=== PATIENT | male | born 1940 | race Caucasian/White ===

== ENCOUNTER 2017-02-04 12:16 | Inpatient (IN) | payer BC ==
[~2017-02-04] VITALS: Ht 175.3 cm; Wt 146.1 kg
[~2017-02-04 12:16] MED LIST: AMIO200T2 PO; ASPI-482 PO; BETA1TAB13 PO; CHOL500045 PO; CHOL500050 PO; DIAZ5TAB PO; DILT120C11 PO; DULA0.75 SQ; FLUT9.9S NS; FURO40TA4 PO; LORA10TA68 PO; LOSA50TA6 PO; LUTE20CA4 PO; METF500T4 PO; METO100T11 PO; OMEG1CAP38 PO; POTASSIUM CHLO10 MEQ PO; SILV20CR14 TP; TRAM50TA PO; VENTOLIN HFA18 GM INH; WARF5TAB7 PO
[2017-02-04] MEDS ORDERED: PNEUMOCOCCAL VAX SCREEN BY RX. MC ONE (13:45)
[2017-02-04 15:00] VITALS: BP 113/61
[2017-02-04] MEDS ORDERED: traMADol 50 MG TABLET PO PRN (15:15)
[2017-02-04] MEDS ORDERED: diazePAM 5 MG TABLET PO PRN ×2 (15:15→15:30)
[2017-02-04] MEDS ORDERED: DEXTROSE 50% 25 GM / 50ML DISP.SYRIN. IV PRN (15:30)
[2017-02-04] MEDS: METOPROLOL SUCC 24HR ER 100 MG TAB.ER.24H. PO SCH (16:00)
[2017-02-04] MEDS ORDERED: metFORMIN 500 MG TABLET PO SCH (16:00)
[2017-02-04] MEDS: LOSARTAN POTASSIUM 50 MG TABLET. PO SCH ×2 (16:00→17:27)
[2017-02-04] MEDS: FUROSEMIDE 40 MG TABLET. PO SCH (16:00)
[2017-02-04] MEDS: POTASSIUM CHLORIDE 10 MEQ TABLET.ER. PO SCH (16:00)
[2017-02-04] MEDS: INSULIN ASPART 300 UNITS/3 ML INSULN.PEN SQ SCH (17:00)
[2017-02-04 19:00] VITALS: BP 106/66
--- NOTE | 2017-02-04 21:22 | RAD ---
EXAM: Bilateral lower extremity venous Doppler. HISTORY: Right calf pain and swelling and bruising. COMPARISON: None. FINDINGS: Grayscale and Doppler analysis of the both lower extremity deep venous systems was performed with graded compression and augmentation. The common femoral, greater saphenous, superficial femoral, popliteal and calf veins were assessed. There is no evidence of deep venous thrombosis. Hypoechoic collection in the right popliteal fossa measures 11.5 x 4.8 x 4.1 cm and extends into the upper calf. Additional fluid is seen along the deep fascia of the catheter more distally. IMPRESSION: 1. No evidence of deep venous thrombosis. 2. Moderate to large right popliteal cyst, with evidence of rupture and extension into the calf. It contains heterogeneous material indicating debris or possibly hemorrhage. Electronically signed by: Leyla Fitzpatrick MD (02/04/2017 9:18 PM) [facility]
[2017-02-04 22:21] LABS: BILIRUBIN,URINE NEGATIVE (NEG); GLUCOSE,URINE NEGATIVE (NEG); NITRITE,URINE NEGATIVE (NEG); PH,URINE 5.5; PROTEIN,URINE NEGATIVE (NEG-TRACE); UROBILINOGEN,URINE 0.2 mg/dL (0.2 mg/dL)
[2017-02-04 22:31] LABS: BACTERIA,URINE 0 /HPF (0-FEW); SQUAMOUS EPITHELIAL CELL,UR OCC /LPF
[2017-02-04 22:48] LABS: PROTHROMBIN TIME PATIENT 53.9 SEC (11.7-14.0)
[2017-02-04 23:00] VITALS: BP 123/64
[2017-02-04 23:11] LABS: INR 6.6 (0.8-1.1)
[2017-02-04 23:40] VITALS: BP 122/64
[2017-02-04 23:54] VITALS: BP 122/63
[2017-02-05 00:55] VITALS: BP 139/67
[2017-02-05 01:07] VITALS: BP 139/67
[2017-02-05 01:24] VITALS: BP 131/59
[2017-02-05 05:16] LABS: BASO # 0.1 x10^3/uL (0.0-0.2); BASO % 1 % (0-3); EOS % 2 % (0-3); HEMATOCRIT 33.9 % (39.0-53.0); HEMOGLOBIN 11.5 g/dL (13.0-17.5); LYMPH # 1.8 x10^3/uL (1.0-4.8); LYMPH % 17 % (24-48); MEAN CORPUSCULAR HEMOGLOBIN 28 pg (25-35); MEAN CORPUSCULAR HGB CONC 34 g/dL (31-37); MEAN CORPUSCULAR VOLUME 84 fL (79-100); MONO % 7 % (0-9); NEUT % 74 % (31-73); PLATELET COUNT 266 x10^3/uL (140-400); RED BLOOD COUNT 4.06 x10^6/uL (4.30-5.70); RED CELL DISTRIBUTION WIDTH 16.1 % (11.5-14.5); WHITE BLOOD COUNT 11.1 x10^3/uL (4.0-11.0)
[2017-02-05 05:32] LABS: INR 3.3 (0.8-1.1); PROTHROMBIN TIME PATIENT 31.3 SEC (11.7-14.0)
[2017-02-05 06:06] LABS: ALBUMIN 2.6 g/dL (3.4-5.0); ALBUMIN/GLOBULIN RATIO 0.7 (1.0-1.7); CALCIUM 8.4 mg/dL (8.5-10.1); CREATININE 1.3 mg/dL (0.7-1.3); POTASSIUM 4.2 mmol/L (3.5-5.1); TOTAL BILIRUBIN 0.6 mg/dL (0.2-1.0); TOTAL PROTEIN 6.6 g/dL (6.4-8.2)
[2017-02-05 07:10] VITALS: BP 122/77
[2017-02-05] MEDS ORDERED: metFORMIN 500 MG TABLET PO SCH (07:30)
[2017-02-05 07:43] LABS: BILIRUBIN,URINE NEGATIVE (NEG); GLUCOSE,URINE NEGATIVE (NEG); NITRITE,URINE NEGATIVE (NEG); PH,URINE 7.5; PROTEIN,URINE NEGATIVE (NEG-TRACE); UROBILINOGEN,URINE 0.2 mg/dL (0.2 mg/dL)
[2017-02-05] MEDS: INSULIN ASPART 300 UNITS/3 ML INSULN.PEN SQ SCH ×2 (07:51→12:00)
[2017-02-05 07:54] LABS: SQUAMOUS EPITHELIAL CELL,UR FEW /LPF
[2017-02-05 07:55] LABS: BACTERIA,URINE FEW /HPF (0-FEW)
[2017-02-05] MEDS: METOPROLOL SUCC 24HR ER 100 MG TAB.ER.24H. PO SCH (08:36)
[2017-02-05] MEDS: LOSARTAN POTASSIUM 50 MG TABLET. PO SCH (08:36)
[2017-02-05] MEDS: FUROSEMIDE 40 MG TABLET. PO SCH (08:37)
[2017-02-05] MEDS: POTASSIUM CHLORIDE 10 MEQ TABLET.ER. PO SCH (08:38)
[2017-02-05] MEDS ORDERED: PNEUMOC CONJ VACC 23-VALENT 0.5 ML VIAL. VAX IM ONE (09:00)
[2017-02-05] MEDS ORDERED: FLUTICASONE 50MCG/NASAL SPRAY 16GM BOTTLE. NS PRN (09:00)
--- NOTE | 2017-02-05 09:21 | PDOC ---
SUBJECTIVE Subjective His hematuria stopped, and his INR is down to 3.3 after fresh frozen plasma transfusion, he is anxious to go home OBJECTIVE Vital Signs Vital Signs Date Time Temp Pulse Resp B/P (MAP) Pulse Ox O2 Delivery O2 Flow Rate FiO2 02/05/17 08:37 92 122/77 02/05/17 08:36 92 122/77 02/05/17 08:36 92 122/77 02/05/17 07:10 97.5 92 20 122/77 (92) 95 Room Air 97.5 02/05/17 01:24 97.7 76 18 131/59 97.7 02/05/17 01:07 97.9 75 18 139/67 97.9 02/05/17 00:55 97.9 75 18 139/67 97.9 02/04/17 23:54 97.7 70 18 122/63 97.7 02/04/17 23:40 97.9 76 18 122/64 97.9 02/04/17 23:00 98.3 80 20 123/64 (83) 92 Room Air 98.3 02/04/17 20:00 Room Air 02/04/17 19:26 Room Air 02/04/17 19:00 97.5 68 20 106/66 (79) 94 Room Air 97.5 02/04/17 18:13 18 94 Room Air 02/04/17 17:27 60 113/61 02/04/17 17:13 20 95 Room Air 02/04/17 15:00 98.1 58 19 113/61 (78) 95 Room Air 98.1 I & O Intake and Output 02/05/17 07:00 Intake Total 1070 ml Balance 1070 ml Intake Oral 1050 ml Blood Product IV Normal Saline Flush 20 ml PHYSICAL EXAM Physical Exam His right lower extremity still swelling and erythema due to ruptured Munson cyst , otherwise exam without change ASSESSMENT/PLAN Assessment/Plan Plan to discharge home and follow-up as outpatient to need INR on then resume anticoagulation Problems: COMMENT Lab Laboratory Tests Test 02/04/17 16:15 02/04/17 17:40 02/04/17 21:01 02/04/17 22:03 Prothrombin Time 53.9 SEC (11.7-14.0) Prothromb Time International Ratio 6.6 (0.8-1.1) Glucose (Fingerstick) 151 mg/dL (70-99) 109 mg/dL (70-99) Urine Collection Type Unknown Urine Color Yellow Urine Clarity Clear Urine pH 5.5 Urine Specific [place] 1.020 Urine Protein Negative mg/dL (NEG-TRACE) Urine Glucose (UA) Negative mg/dL (NEG) Urine Ketones (Stick) Negative mg/dL (NEG) Urine Blood Moderate (NEG) Urine Nitrite Negative (NEG) Urine Bilirubin Negative (NEG) Urine Urobilinogen Dipstick 0.2 mg/dL (0.2 mg/dL) Urine Leukocyte Esterase Small (NEG) Urine RBC 6-10 /HPF (0-2) Urine WBC 1-4 /HPF (0-4) Urine Squamous Epithelial Cells Occ /LPF Urine Bacteria 0 /HPF (0-FEW) Urine Mucus Mod /LPF Test 02/05/17 05:00 02/05/17 07:10 02/05/17 07:20 White Blood Count 11.1 x10^3/uL (4.0-11.0) Red Blood Count 4.06 x10^6/uL (4.30-5.70) Hemoglobin 11.5 g/dL (13.0-17.5) Hematocrit 33.9 % (39.0-53.0) Mean Corpuscular Volume 84 fL (79-100) Mean Corpuscular Hemoglobin 28 pg (25-35) Mean Corpuscular Hemoglobin Concent 34 g/dL (31-37) Red Cell Distribution Width 16.1 % (11.5-14.5) Platelet Count 266 x10^3/uL (140-400) Neutrophils (%) (Auto) 74 % (31-73) Lymphocytes (%) (Auto) 17 % (24-48) Monocytes (%) (Auto) 7 % (0-9) Eosinophils (%) (Auto) 2 % (0-3) Basophils (%) (Auto) 1 % (0-3) Neutrophils # (Auto) 8.2 x10^3uL (1.8-7.7) Lymphocytes # (Auto) 1.8 x10^3/uL (1.0-4.8) Monocytes # (Auto) 0.8 x10^3/uL (0.0-1.1) Eosinophils # (Auto) 0.2 x10^3/uL (0.0-0.7) Basophils # (Auto) 0.1 x10^3/uL (0.0-0.2) Prothrombin Time 31.3 SEC (11.7-14.0) Prothromb Time International Ratio 3.3 (0.8-1.1) Sodium Level 140 mmol/L (136-145) Potassium Level 4.2 mmol/L (3.5-5.1) Chloride Level 103 mmol/L (98-107) Carbon Dioxide Level 29 mmol/L (21-32) Anion Gap 8 (6-14) Blood Urea Nitrogen 20 mg/dL (8-26) Creatinine 1.3 mg/dL (0.7-1.3) Estimated GFR (Cockcroft-Gault) 54.0 BUN/Creatinine Ratio 15 (6-20) Glucose Level 100 mg/dL (70-99) Calcium Level 8.4 mg/dL (8.5-10.1) Total Bilirubin 0.6 mg/dL (0.2-1.0) Aspartate Amino Transf (AST/SGOT) 29 U/L (15-37) Alanine Aminotransferase (ALT/SGPT) 27 U/L (16-63) Alkaline Phosphatase 29 U/L (46-116) Total Protein 6.6 g/dL (6.4-8.2) Albumin 2.6 g/dL (3.4-5.0) Albumin/Globulin Ratio 0.7 (1.0-1.7) Glucose (Fingerstick) 110 mg/dL (70-99) Urine Collection Type Unknown Urine Color Yellow Urine Clarity Clear Urine pH 7.5 Urine Specific [place] 1.010 Urine Protein Negative mg/dL (NEG-TRACE) Urine Glucose (UA) Negative mg/dL (NEG) Urine Ketones (Stick) Negative mg/dL (NEG) Urine Blood Negative (NEG) Urine Nitrite Negative (NEG) Urine Bilirubin Negative (NEG) Urine Urobilinogen Dipstick 0.2 mg/dL (0.2 mg/dL) Urine Leukocyte Esterase Negative (NEG) Urine RBC 1-2 /HPF (0-2) Urine WBC 1-4 /HPF (0-4) Urine Squamous Epithelial Cells Few /LPF Urine Bacteria Few /HPF (0-FEW) Urine Mucus Slight /LPF NATALI DEVINE MD Feb 05, 2017 09:21
--- NOTE | 2017-02-05 09:55 | PDOC3 ---
Discharge Summary* Date of Admission: Feb 04, 2017 Date of Discharge: Feb 05, 2017 Admitting Diagnosis 1-coagulopathy with INR of over 8 2-hematuria due to coagulopathy 3-ruptured Munson's cyst in the right lower extremity 4-atrial fibrillation and chronic anticoagulation 5-hypertension Problems: Final Diagnosis 1-coagulopathy with INR of over 8 2-hematuria due to coagulopathy 3-ruptured Munson's cyst in the right lower extremity 4-atrial fibrillation and chronic anticoagulation 5-hypertension Procedures Venous Doppler ultrasound bilateral lower extremity, fresh frozen plasma transfusion 2 units Brief Hospital Course Mr. Palomino is a 76 old M who presented with active hematuria due to coagulopathy and INR of 8 he is on Coumadin treatment he was admitted and fresh frozen plasma was transfused his INR the next day was down to 3.3 he was feeling much better and his hematuria stopped he had swelling and pain in the right lower extremity and a venous Doppler ultrasound was done and showed ruptured Munson cyst with hemorrhage probably due to his coagulopathy he was assured and he will continue to hold his anticoagulation and see us in the office on another INR will be checked and will decide to resume anticoagulation then probably was Coumadin or Xarelto Disposition/Orders: D/C to Home CONDITION AT DISCHARGE: Improved, Stable Diet: Cardiac, Consistent Carbohydrate Scheduled Albuterol Sulfate (Ventolin Hfa Inhaler), 2 PUFF INH QID, (Reported) Beta-Carotene(A) W-C & E/Min (Opti-Vitamins Tablet), 2 EACH PO DAILY, (Reported) Cholecalciferol (Vitamin D3) (Vitamin D), 5,000 UNIT PO DAILY, (Reported) Diltiazem Hcl (Diltiazem Er), 120 MG PO DAILY, (Reported) Dulaglutide (Trulicity), 0.75 MG SQ QSU, (Reported) Furosemide (Furosemide), 1 TAB PO DAILY, (Reported) Loratadine (Claritin), 1 TAB PO DAILY, (Reported) Losartan Potassium (Losartan Potassium), 50 MG PO DAILY, (Reported) Lutein (Lutein), 20 MG PO DAILY, (Reported) Metformin Hcl (Metformin Hcl), 500 MG PO BIDAC, (Reported) Metoprolol Succinate (Metoprolol Succinate ( Xl )), 100 MG PO DAILY, (Reported) [place]-3 Fatty Acids/Fish Oil ([place] 3 Fish Oil Softgel), 2 EACH PO DAILY, ( Reported) Potassium Chloride (Potassium Chloride), 10 MEQ PO DAILY, (Reported) Silver Sulfadiazine (Silvadene), 1 SOFIA TP BID, (Reported) Scheduled PRN Diazepam (Valium), 1-2 TAB PO PRN TID PRN for ANXIETY / AGITATION, (Reported) Fluticasone Propionate (Flonase Allergy Relief), 2 SPRAYS NS PRN BID PRN for CONGESTION, (Reported) Tramadol Hcl (Tramadol Hcl), 1 TAB PO TID PRN for PAIN, (Reported) Discontinued Medications Aspirin (Aspir 81), 1 TAB PO DAILY, (Reported) Warfarin Sodium (Warfarin Sodium), 1 TAB PO DAILY, (Reported) FOLLOW UP APPOINTMENT: in the office Time Spent Total time spent with patient [] minutes for coordination of care, counseling, and education. NATALI DEVINE MD Feb 05, 2017 09:55
[2017-02-05 10:30] VITALS: BP 120/67
--- NOTE | 2017-02-05 18:29 | PDOC1 ---
History and Physical Date of Admission Date of Admission 02/04/17 Identification/Chief Complaint Chief Complaint Pain right lower extremity and swelling, hematuria Problems: Source Source: Patient History of Present Illness History of Present Illness Patient presented to the office complaining of right lower extremity pain and swelling and erythema he is on Coumadin his INR was over therapeutic over 8 and the when he went to the bathroom he had lev hematuria he was admitted for transfusion of fresh frozen frozen plasma and further evaluation of his right lower extremity Past Medical History Cardiovascular: AFIB, CHF, HTN, Other Renal/: Chronic renal insuff Endocrine: Diabetes Past Surgical History Past Surgical History: Pacemaker, Cholecystectomy Family History Family History: Diabetes, Hypertension Social History Smoke: No ALCOHOL: rare Drugs: None Current Medications Current Medications Current Medications Medications (Trade) Dose Ordered Sig/Sagar Start Time Stop Time Status Last Admin Dose Admin Dextrose (Dextrose 50%-Water Syringe) 12.5 gm PRN Q15MIN PRN 02/04/17 15:30 02/05/17 12:11 DC Diazepam (Valium) 10 mg PRN TID PRN 02/04/17 15:30 02/05/17 12:11 DC Diltiazem HCl (Cardizem 24hr Cd) 120 mg DAILY 02/04/17 16:00 02/05/17 12:11 DC 02/05/17 08:37 120 MG Fluticasone Propionate (Flonase) 1 spray PRN BID PRN 02/05/17 09:00 02/05/17 12:11 DC Furosemide (Lasix) 40 mg DAILY 02/04/17 16:00 02/05/17 12:11 DC 02/05/17 08:37 40 MG Insulin Aspart (NovoLOG) 0-5 UNITS TIDWMEALS 02/04/17 17:00 02/05/17 12:11 DC Losartan Potassium (Cozaar) 50 mg DAILY 02/04/17 16:00 02/05/17 12:11 DC 02/05/17 08:36 50 MG Metformin HCl (Glucophage) 500 mg BIDAC 02/05/17 07:30 02/05/17 12:11 DC 02/05/17 08:38 500 MG Metoprolol Succinate (Toprol Xl) 100 mg DAILY 02/04/17 16:00 02/05/17 12:11 DC 02/05/17 08:36 100 MG Non-Formulary Medication 0.75 mg QSU 02/10/17 16:00 02/10/17 16:00 DC Pneumococcal Polyvalent Vaccine (Do NOT chart on this placeholder) 1 each 1X ONCE 02/04/17 13:45 02/04/17 13:46 UNV Pneumococcal Polyvalent Vaccine (Pneumovax 23) 0.5 ml ONCE ONCE 02/05/17 09:00 02/05/17 09:01 DC 02/05/17 08:51 0.5 ML Potassium Chloride (Klor-Con) 10 meq [id number] 02/04/17 16:00 02/05/17 12:11 DC 02/05/17 08:38 10 MEQ Tramadol HCl (Ultram) 50 mg PRN TID PRN 02/04/17 15:15 02/05/17 12:11 DC 02/04/17 17:13 50 MG Allergies Allergies Allergies Coded Allergies Type Severity Reaction Last Updated Verified No Known Drug Allergies 06/26/13 No ROS Review of System CONSTITUTIONAL: No fever or chills EYES: No recent changes SKIN: No rash or itching CARDIOVASCULAR: No chest pain, syncope, palpitations, edema and erythema in the right lower extremity RESPIRATORY: No SOB or cough GASTROINTESTINAL: No nausea, vomiting or abdominal pain NEUROLOGICAL: No headaches or weakness ENDOCRINE: No cold or heat intolerance GENITOURINARY: Hematuria was blood in the urine no pain MUSCULOSKELETAL: No back pain or joint pain LYMPHATICS: No enlarged lymph nodes PSYCHIATRIC: No anxiety or depression Physical Exam Physical Exam GEN.: No apparent distress. Alert and oriented. HEENT: Head is normocephalic, atraumatic NECK: Supple. LUNGS: Clear to auscultation. HEART: RRR, S1, S2 present. ABDOMEN: Soft, nontender. Positive bowel sounds. EXTREMITIES: Without any cyanosis. He does have a swelling in the right lower extremity with erythema and warm to touch pain behind the knee NEUROLOGIC: Normal speech, normal tone PSYCHIATRIC: Normal affect, normal mood. Vitals Vitals Vital Signs Date Time Temp Pulse Resp B/P (MAP) Pulse Ox O2 Delivery O2 Flow Rate FiO2 02/05/17 10:30 96.1 71 20 120/67 (84) 93 Room Air 96.1 Labs Labs Laboratory Tests Test 02/04/17 16:15 02/04/17 17:40 02/04/17 21:01 02/04/17 22:03 Prothrombin Time 53.9 SEC (11.7-14.0) Prothromb Time International Ratio 6.6 (0.8-1.1) Glucose (Fingerstick) 151 mg/dL (70-99) 109 mg/dL (70-99) Urine Collection Type Unknown Urine Color Yellow Urine Clarity Clear Urine pH 5.5 Urine Specific [place] 1.020 Urine Protein Negative mg/dL (NEG-TRACE) Urine Glucose (UA) Negative mg/dL (NEG) Urine Ketones (Stick) Negative mg/dL (NEG) Urine Blood Moderate (NEG) Urine Nitrite Negative (NEG) Urine Bilirubin Negative (NEG) Urine Urobilinogen Dipstick 0.2 mg/dL (0.2 mg/dL) Urine Leukocyte Esterase Small (NEG) Urine RBC 6-10 /HPF (0-2) Urine WBC 1-4 /HPF (0-4) Urine Squamous Epithelial Cells Occ /LPF Urine Bacteria 0 /HPF (0-FEW) Urine Mucus Mod /LPF Test 02/05/17 05:00 02/05/17 07:10 02/05/17 07:20 02/05/17 11:20 White Blood Count 11.1 x10^3/uL (4.0-11.0) Red Blood Count 4.06 x10^6/uL (4.30-5.70) Hemoglobin 11.5 g/dL (13.0-17.5) Hematocrit 33.9 % (39.0-53.0) Mean Corpuscular Volume 84 fL (79-100) Mean Corpuscular Hemoglobin 28 pg (25-35) Mean Corpuscular Hemoglobin Concent 34 g/dL (31-37) Red Cell Distribution Width 16.1 % (11.5-14.5) Platelet Count 266 x10^3/uL (140-400) Neutrophils (%) (Auto) 74 % (31-73) Lymphocytes (%) (Auto) 17 % (24-48) Monocytes (%) (Auto) 7 % (0-9) Eosinophils (%) (Auto) 2 % (0-3) Basophils (%) (Auto) 1 % (0-3) Neutrophils # (Auto) 8.2 x10^3uL (1.8-7.7) Lymphocytes # (Auto) 1.8 x10^3/uL (1.0-4.8) Monocytes # (Auto) 0.8 x10^3/uL (0.0-1.1) Eosinophils # (Auto) 0.2 x10^3/uL (0.0-0.7) Basophils # (Auto) 0.1 x10^3/uL (0.0-0.2) Prothrombin Time 31.3 SEC (11.7-14.0) Prothromb Time International Ratio 3.3 (0.8-1.1) Sodium Level 140 mmol/L (136-145) Potassium Level 4.2 mmol/L (3.5-5.1) Chloride Level 103 mmol/L (98-107) Carbon Dioxide Level 29 mmol/L (21-32) Anion Gap 8 (6-14) Blood Urea Nitrogen 20 mg/dL (8-26) Creatinine 1.3 mg/dL (0.7-1.3) Estimated GFR (Cockcroft-Gault) 54.0 BUN/Creatinine Ratio 15 (6-20) Glucose Level 100 mg/dL (70-99) Calcium Level 8.4 mg/dL (8.5-10.1) Total Bilirubin 0.6 mg/dL (0.2-1.0) Aspartate Amino Transf (AST/SGOT) 29 U/L (15-37) Alanine Aminotransferase (ALT/SGPT) 27 U/L (16-63) Alkaline Phosphatase 29 U/L (46-116) Total Protein 6.6 g/dL (6.4-8.2) Albumin 2.6 g/dL (3.4-5.0) Albumin/Globulin Ratio 0.7 (1.0-1.7) Glucose (Fingerstick) 110 mg/dL (70-99) 103 mg/dL (70-99) Urine Collection Type Unknown Urine Color Yellow Urine Clarity Clear Urine pH 7.5 Urine Specific [place] 1.010 Urine Protein Negative mg/dL (NEG-TRACE) Urine Glucose (UA) Negative mg/dL (NEG) Urine Ketones (Stick) Negative mg/dL (NEG) Urine Blood Negative (NEG) Urine Nitrite Negative (NEG) Urine Bilirubin Negative (NEG) Urine Urobilinogen Dipstick 0.2 mg/dL (0.2 mg/dL) Urine Leukocyte Esterase Negative (NEG) Urine RBC 1-2 /HPF (0-2) Urine WBC 1-4 /HPF (0-4) Urine Squamous Epithelial Cells Few /LPF Urine Bacteria Few /HPF (0-FEW) Urine Mucus Slight /LPF Laboratory Tests Test 02/04/17 21:01 02/04/17 22:03 02/05/17 05:00 02/05/17 07:10 Glucose (Fingerstick) 109 mg/dL (70-99) 110 mg/dL (70-99) Urine Collection Type Unknown Urine Color Yellow Urine Clarity Clear Urine pH 5.5 Urine Specific [place] 1.020 Urine Protein Negative mg/dL (NEG-TRACE) Urine Glucose (UA) Negative mg/dL (NEG) Urine Ketones (Stick) Negative mg/dL (NEG) Urine Blood Moderate (NEG) Urine Nitrite Negative (NEG) Urine Bilirubin Negative (NEG) Urine Urobilinogen Dipstick 0.2 mg/dL (0.2 mg/dL) Urine Leukocyte Esterase Small (NEG) Urine RBC 6-10 /HPF (0-2) Urine WBC 1-4 /HPF (0-4) Urine Squamous Epithelial Cells Occ /LPF Urine Bacteria 0 /HPF (0-FEW) Urine Mucus Mod /LPF White Blood Count 11.1 x10^3/uL (4.0-11.0) Red Blood Count 4.06 x10^6/uL (4.30-5.70) Hemoglobin 11.5 g/dL (13.0-17.5) Hematocrit 33.9 % (39.0-53.0) Mean Corpuscular Volume 84 fL (79-100) Mean Corpuscular Hemoglobin 28 pg (25-35) Mean Corpuscular Hemoglobin Concent 34 g/dL (31-37) Red Cell Distribution Width 16.1 % (11.5-14.5) Platelet Count 266 x10^3/uL (140-400) Neutrophils (%) (Auto) 74 % (31-73) Lymphocytes (%) (Auto) 17 % (24-48) Monocytes (%) (Auto) 7 % (0-9) Eosinophils (%) (Auto) 2 % (0-3) Basophils (%) (Auto) 1 % (0-3) Neutrophils # (Auto) 8.2 x10^3uL (1.8-7.7) Lymphocytes # (Auto) 1.8 x10^3/uL (1.0-4.8) Monocytes # (Auto) 0.8 x10^3/uL (0.0-1.1) Eosinophils # (Auto) 0.2 x10^3/uL (0.0-0.7) Basophils # (Auto) 0.1 x10^3/uL (0.0-0.2) Prothrombin Time 31.3 SEC (11.7-14.0) Prothromb Time International Ratio 3.3 (0.8-1.1) Sodium Level 140 mmol/L (136-145) Potassium Level 4.2 mmol/L (3.5-5.1) Chloride Level 103 mmol/L (98-107) Carbon Dioxide Level 29 mmol/L (21-32) Anion Gap 8 (6-14) Blood Urea Nitrogen 20 mg/dL (8-26) Creatinine 1.3 mg/dL (0.7-1.3) Estimated GFR (Cockcroft-Gault) 54.0 BUN/Creatinine Ratio 15 (6-20) Glucose Level 100 mg/dL (70-99) Calcium Level 8.4 mg/dL (8.5-10.1) Total Bilirubin 0.6 mg/dL (0.2-1.0) Aspartate Amino Transf (AST/SGOT) 29 U/L (15-37) Alanine Aminotransferase (ALT/SGPT) 27 U/L (16-63) Alkaline Phosphatase 29 U/L (46-116) Total Protein 6.6 g/dL (6.4-8.2) Albumin 2.6 g/dL (3.4-5.0) Albumin/Globulin Ratio 0.7 (1.0-1.7) Test 02/05/17 07:20 02/05/17 11:20 Urine Collection Type Unknown Urine Color Yellow Urine Clarity Clear Urine pH 7.5 Urine Specific [place] 1.010 Urine Protein Negative mg/dL (NEG-TRACE) Urine Glucose (UA) Negative mg/dL (NEG) Urine Ketones (Stick) Negative mg/dL (NEG) Urine Blood Negative (NEG) Urine Nitrite Negative (NEG) Urine Bilirubin Negative (NEG) Urine Urobilinogen Dipstick 0.2 mg/dL (0.2 mg/dL) Urine Leukocyte Esterase Negative (NEG) Urine RBC 1-2 /HPF (0-2) Urine WBC 1-4 /HPF (0-4) Urine Squamous Epithelial Cells Few /LPF Urine Bacteria Few /HPF (0-FEW) Urine Mucus Slight /LPF Glucose (Fingerstick) 103 mg/dL (70-99) VTE Prophylaxis Ordered VTE Prophylaxis Devices: Contraindicated VTE Pharmacological Prophylaxi: Contraindicated Assessment/Plan Assessment/Plan 1-hematuria due to coagulopathy 2-coagulopathy due to Coumadin treated with fresh frozen plasma with INR down from 8-3.3 3-ruptured right Munson cyst with hematoma causing swelling and pain of the right lower extremity 4-chronic A. fib 5-CAD 6-diabetes mellitus type 2 7-HTN NATALI DEVINE MD Feb 05, 2017 18:29
[2017-02-10] MEDS ORDERED: NON FORMULARY ITEM (Dulaglutide (Trulicity) 0.75 MG) SQ SCH (16:00)
== END 2017-02-05 12:11 | disposition home or self-care (01) | DRG 813 ==
LOC: 5 NORTH 12:24
PROVIDERS: ADMIT Internal Medicine; ATTEND Internal Medicine
PROC: 30233L1 Transfusion of Nonautologous Fresh Plasma into Peripheral Vein, Percutaneous Approach (ICD-10-PCS; principal; 2017-02-04)
PROC: 30233K1 Transfusion of Nonautologous Frozen Plasma into Peripheral Vein, Percutaneous Approach (ICD-10-PCS; 2017-02-04)
DX: D68.32 Hemorrhagic disorder due to extrinsic circulating anticoagulants (principal); I13.0 Hypertensive heart and chronic kidney disease with heart failure and stage 1 through stage 4 chronic kidney disease, or unspecified chronic kidney disease; E44.0 Moderate protein-calorie malnutrition; R31.0 Gross hematuria; T45.515A Adverse effect of anticoagulants, initial encounter; E11.9 Type 2 diabetes mellitus without complications; I50.9 Heart failure, unspecified; I25.10 Atherosclerotic heart disease of native coronary artery without angina pectoris; I48.2 Chronic atrial fibrillation; M71.20 Synovial cyst of popliteal space [Baker], unspecified knee; N18.9 Chronic kidney disease, unspecified; Y92.89 Other specified places as the place of occurrence of the external cause; Z79.01 Long term (current) use of anticoagulants; Z82.49 Family history of ischemic heart disease and other diseases of the circulatory system; Z83.3 Family history of diabetes mellitus; Z95.0 Presence of cardiac pacemaker; Z90.49 Acquired absence of other specified parts of digestive tract; Z79.84 Long term (current) use of oral hypoglycemic drugs; Z79.899 Other long term (current) drug therapy
CPT/HCPCS: 36415; 80053; 81001; 82962; 85027; 85610; 86850; 86900; 86901; 86927; 90732; 93970; J1815; P9017

== ENCOUNTER → 2017-05-03 | Outpatient (CLI) | payer BC ==
[~2017-05-03] MED LIST changes: +METO-247 PO; -METO100T11 PO
--- NOTE | 2017-05-03 10:07 | CARD ---
APPROVED REPORT EXAM: Two-dimensional and M-mode echocardiogram with Doppler and color Doppler. Other Information Quality : Good INDICATION Paroxysmal Atrial Fibrillation 2D DIMENSIONS RVDd2.9 (2.9-3.5cm)Left Atrium(2D)3.8 (1.6-4.0cm) IVSd0.7 (0.7-1.1cm)Aortic Root(2D)2.7 (2.0-3.7cm) LVDd6.3 (3.9-5.9cm)LVOT Diameter2.3 (1.8-2.4cm) PWd0.7 (0.7-1.1cm)LVDs4.8 (2.5-4.0cm) FS (%) 24.4 %SV95.8 ml Aortic Valve AoV Peak Kamlesh.153.2cm/sAoV VTI30.3cm AO Peak GR.9.4mmHgLVOT Peak Kamlesh.144.7cm/s LVOT VTI 27.83cmAO Mean GR.5mmHg PEARL (VMAX)3.82rf5NHU (VTI)3.74cm2 Mitral Valve MV E Nmabwudv11.6cm/sMV DECEL [id number] MV A Vvarrkgq252.6cm/sMV MLR51hu E/A Ratio0.8MVA (PHT)3.16cm2 TDI E/Lateral E'9.3E/Medial E'18.2 Tricuspid Valve TR P. [id number]/sRAP RPGPFGUI0qgJv TR Peak Gr.95ayKtEDWU91jfVa Pulmonary Vein S1 Bxzzhbqt11.3cm/sD2 Hieprfxm18.1cm/s PVa [id number] LEFT VENTRICLE The Left Ventricle is mildly dilated. There is normal left ventricular wall thickness. Left ventricle systolic function is normal. The Ejection Fraction is 50-55%. Abnormal septal motion probably from p aced rhythm. Transmitral Doppler flow pattern is Grade I-abnormal relaxation pattern. RIGHT VENTRICLE The right ventricle is normal size. The right ventricular systolic function is normal. There is a pac emaker lead in the right ventricle. ATRIA The left atrium size is normal. The right atrium size is normal. A pacemaker is seen in the right atr ium consistent with history. The interatrial septum is intact with no evidence for an atrial septal d efect or patent foramen ovale as noted on 2-D or Doppler imaging. AORTIC VALVE The aortic valve is calcified but opens well. Doppler and Color Flow revealed no significant aortic r egurgitation. There is no significant aortic valvular stenosis. MITRAL VALVE The mitral valve is calcified but opens well. There is no evidence of mitral valve prolapse. There is no mitral valve stenosis. Doppler and Color-flow revealed trace to mild mitral regurgitation. TRICUSPID VALVE The tricuspid valve is normal in structure and function. Doppler and Color Flow revealed mild tricusp id regurgitation. There is moderate pulmonary hypertension. The PA pressure was estimated at 53 mmHg. There is no tricuspid valve stenosis. PULMONIC VALVE The pulmonary valve is normal in structure and function. Doppler and Color Flow revealed trace pulmon ic valvular regurgitation. There is no pulmonic valvular stenosis. GREAT VESSELS The aortic root is normal in size. The ascending aorta is normal in size. The IVC is normal in size a nd collapses >50% with inspiration. PERICARDIAL EFFUSION There is no evidence of significant pericardial effusion. Critical Notification Critical Value: No <Conclusion> Left ventricle systolic function is normal. The Ejection Fraction is 50-55%. Abnormal septal motion probably from paced rhythm. Transmitral Doppler flow pattern is Grade I-abnormal relaxation pattern. There is a pacemaker lead in the right atrium and right ventricle. Trace to mild mitral regurgitation. Mild tricuspid regurgitation. The PA pressure was estimated at 53 mmHg. There is no evidence of significant pericardial effusion.
== END | disposition home or self-care (01) ==
LOC: ECHO 08:48
PROVIDERS: ATTEND Internal Medicine Cardiovascular Disease
DX: I08.1 Rheumatic disorders of both mitral and tricuspid valves (principal); I48.0 Paroxysmal atrial fibrillation; Z95.0 Presence of cardiac pacemaker
CPT/HCPCS: 93306